=== PATIENT | male | born 1975 | race African-American/Black ===

== ENCOUNTER → 2017-07-06 | Outpatient (REF) ==
--- NOTE | 2017-07-06 09:23 | REP ---
STANDING AP BILATERAL KNEES: Standing AP views of bilateral knees performed. No fracture, dislocation or intrinsic bone disease is seen. Joint spaces are normal. IMPRESSION: Negative exam. Signed by Saw Jackman MD 07/06/2017 09:42 A
--- NOTE | 2017-07-06 09:24 | REP ---
RIGHT KNEE, TWO VIEWS: Lateral and sunrise views of the right knee are performed and correlated with today's AP standing view. There is no fracture, dislocation or intrinsic bone disease. The joint spaces appear normal. There is no joint effusion. IMPRESSION: Negative right knee series. Signed by Saw Jackman MD 07/06/2017 09:42 A
== END ==
LOC: M RAD 08:29
PROVIDERS: ATTEND Internal Medicine
DX: M25.561 Pain in right knee (principal)

== ENCOUNTER 2017-09-28 04:20 | Emergency (ER) | payer OTHER ==
[~2017-09-28] VITALS: Ht 188 cm; Wt 90.0 kg
[2017-09-28] MEDS ORDERED: KETOROLAC 30 MG/ML VIAL (J1885) IV ONE ×2 (05:15→08:15)
[2017-09-28] MEDS ORDERED: NS 1,000 ML IV ONE (05:15)
[2017-09-28 05:44] LABS: BASO % 0.4 % (0.0-1.0); EOS % 0.6 % (0.0-3.0); IMMATURE GRANULOCYTE % 0.4 % (0-0); LYMPH # 1.7 10^3/uL (1.5-4.5); LYMPH % 25.6 % (24.0-44.0); MEAN CORPUSCULAR HEMOGLOBIN 33.5 pg (27.0-33.0); MEAN CORPUSCULAR HGB CONC 34.1 g/dl (32.0-36.5); MEAN CORPUSCULAR VOLUME 98.2 fl (80.0-96.0); MONO # 0.6 10^3/uL (0.0-0.8); MONO % 8.8 % (0.0-5.0); NEUTROPHILS # 4.3 10^3/uL (1.8-7.7); NEUTROPHILS % 64.2 % (36.0-66.0); PLATELET COUNT, AUTOMATED 241 10^3/uL (150-450); RED CELL DISTRIBUTION WIDTH 11.5 % (11.5-14.5); WHITE BLOOD COUNT 6.7 10^3/uL (4.0-10.0)
--- NOTE | 2017-09-28 07:00 | REPUSA ---
CLINICAL HISTORY: Abdominal pain. TECHNIQUE: Multiple axial, sagittal and coronal CT images were obtained through the abdomen and pelvi s without administration of oral or IV contrast material. COMMENTS: The liver is of uniform attenuation without mass or defect. There is no intra or extrahepatic biliary ductal dilatation. The spleen is normal. The gallbladder is within normal limits. The pancreas is of normal contour and attenuation characteristics. There is no evidence of adrenal mass. 3.8x2.7 cm right renal simple cyst. Bilateral renal stones with the largest measuring 5 mm. 4.7 mm obstructing stone of the junction between the mid and distal thirds of the left ureter. Mild l eft hydroureteronephrosis. Intervertebral disc spacer is noted at L5-S1 in good position. There is no evidence for appendicitis. There is no bowel wall thickening. No evidence for small or la rge bowel obstruction. There is no evidence of abdominal ascites or lymphadenopathy. There is no evidence of intrinsic or extrinsic bladder mass. There is no pelvic ascites or lymphadeno byron. Images of the lung bases show no evidence of pleural or parenchymal mass. There are no pleural effusi ons. The bony structures are free of lytic or blastic lesions. Multilevel degenerative changes are seen in volving the thoracolumbar spine. Fat containing hernia without incarceration. IMPRESSION: Bilateral nephrolithiasis. Obstructing stone of the distal left ureter. Mild left hydroureteronephrosis. Thank you for your kind referral of this patient.
[2017-09-28 07:05] LABS: ALBUMIN 3.7 GM/DL (3.2-5.2); ALBUMIN/GLOBULIN RATIO 1.06 (1.00-1.93); ALKALINE PHOSPHATASE 56 U/L (45-117); ALT/SGPT 30 U/L (12-78); ANION GAP 6 MEQ/L (8-16); AST/SGOT 16 U/L (7-37); BILIRUBIN,DIRECT 0.3 MG/DL (0.0-0.2); BILIRUBIN,TOTAL 1.7 MG/DL (0.2-1.0); BLOOD UREA NITROGEN 11 MG/DL (7-18); CALCIUM LEVEL 8.6 MG/DL (8.5-10.1); CARBON DIOXIDE LEVEL 29 MEQ/L (21-32); CHLORIDE LEVEL 106 MEQ/L (98-107); CREATININE FOR GFR 1.06 MG/DL (0.70-1.30); GLOMERULAR FILTRATION RATE > 60.0 (>60); GLUCOSE, FASTING 99 MG/DL (70-105); POTASSIUM SERUM 4.2 MEQ/L (3.5-5.1); SODIUM LEVEL 141 MEQ/L (136-145); TOTAL PROTEIN 7.2 GM/DL (6.4-8.2)
[2017-09-28 07:42] VITALS: O2SAT 96
[2017-09-28] MEDS ORDERED: PERCOCET 5MG/325MG TAB PO ONE (08:15)
[2017-09-28] MEDS ORDERED: PERC5TAB12 PO (08:52)
[2017-09-28] MEDS ORDERED: FLOM5CAP PO (08:52)
[2017-09-28 09:05] VITALS: BP 132/83
== END 2017-09-28 09:07 | disposition home or self-care (01) ==
LOC: M ED 04:20
DX: N20.1 Calculus of ureter (principal); F43.10 Post-traumatic stress disorder, unspecified; Z87.442 Personal history of urinary calculi
CPT/HCPCS: 36415; 74176; 80048; 80076; 81001; 83690; 85025; 96374; 99284; J1885

== ENCOUNTER → 2019-11-03 | Outpatient (CLI) | payer OTHER ==
[~2019-11-03] MED LIST: FLOM0.4C39 PO; PERC5TAB12 PO
--- NOTE | 2019-11-03 15:22 | REP ---
MRI RIGHT HIP WITHOUT CONTRAST: HISTORY: Disorder of ligament right hip. The patient reports injury in a fall with pain in the right hip. Comparison radiographs. October 25, 2019. TECHNIQUE: Coronal T1- and T2-weighted wide field of view bilateral images are acquired. In addition, T2-weighted smaller field of view higher resolution fat sat images are obtained of the right hip in all three planes. MRI FINDINGS: Cortical and medullary bone signal intensity are normal on T1- and T2-weighted scans in the proximal femurs. There is no evidence of occult fracture or avascular necrosis. Bone signal intensity is normal in the visualized bony pelvic ring as well. No significant hip joint effusion is seen. No periarticular bursal fluid collection or hematoma is appreciated. Urinary bladder, prostate, and seminal vesicles are unremarkable. There is no evidence of acetabular labral disruption. No loose body is seen. Ligamentum teres is intact. There is no abnormality at the common hamstring tendon insertion on the ischium or on other tendon insertions on the greater trochanter or lesser trochanter. There is a tiny subcortical cyst in the superior acetabulum, and there is minimal chondromalacia pattern in the hip articulation. This appears to be bilateral. IMPRESSION: Subtle findings may reflect chondromalacia. There is a tiny subcortical cyst in the acetabulum on the right. Otherwise normal MRI study of the right hip. Electronically Signed by Maldonado Farah MD 11/03/2019 03:50 P
== END ==
LOC: M RAD 13:14
PROVIDERS: ATTEND Family Medicine
DX: M24.251 Disorder of ligament, right hip (principal)

== ENCOUNTER → 2020-02-04 | Outpatient (CLI) | payer OTHER ==
--- NOTE | 2020-02-06 03:04 | ECWPNPC ---
PATIENT NAME: ARNOLDO WALDEN : 1975 GENDER: MALE VISIT DATE: 02/04/2020 DISCHARGE DATE: 02/04/20 1123 VISIT LOCKED DATE TIME: PHYSICIAN: EVAN ESPINOZA RESOURCE: EVAN ESPINOZA REASON FOR APPOINTMENT 1. REFERENCE #: [id number] HISTORY OF PRESENT ILLNESS PAIN SCREENING: PATIENT HAS A COMPLAINT OF ACUTE OR CHRONIC PAIN :YES 44-YEAR-OLD MALE IN FOR INITIAL PAIN CONSULT. HE RATES HIS PAIN CURRENTLY AT A 6 OUT OF 10 AND DESCRIBES IT ACHING, AND SHARP. 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 PATIENT STATES HIS BACK PAIN HAS BEEN PRESENT FOR 10 YEARS AND DENIES BEING ON MEDICATIONS IN THE PAST THAT HE FOUND HELPFUL IN ALLEVIATING HIS SYMPTOMS. FALL RISK SCREENING: SCREENING :NO FALLS REPORTED IN THE LAST YEAR CURRENT MEDICATIONS TAKING ERGOCALCIFEROL 50 MCG (2000 UT) TABLET 1 TABLET ORALLY ONCE A DAY TAKING ROSUVASTATIN CALCIUM 40 MG TABLET 1 TABLET ORALLY ONCE A DAY TAKING SERTRALINE HCL 100 MG TABLET 1/2 TABLET ORALLY ONCE A DAY NOT-TAKING CYCLOBENZAPRINE HCL 5 MG TABLET 1/2 TAB AT HS NEEDED ORALLY BEFORE BEDTIME NOT-TAKING FLUTICASONE PROPIONATE 50 MCG/ACT SUSPENSION 1 SPRAY IN EACH NOSTRIL NASALLY ONCE A DAY NOT-TAKING MELOXICAM 15 MG TABLET 1 TABLET ORALLY ONCE DAILY NEEDED NOT-TAKING OMEPRAZOLE 20 MG CAPSULE DELAYED RELEASE 1 CAPSULE 30 MINUTES BEFORE MORNING MEAL ORALLY ONCE A DAY NOT-TAKING SODIUM CHLORIDE (INHALANT) 0.65% SOLN NASAL SPRAY 1 SPAY IN EACH NOSTRIL DAILY MEDICATION LIST REVIEWED AND RECONCILED WITH THE PATIENT PAST MEDICAL HISTORY CHRONIC PAIN SYNDROME PTSD FLORENTINO MIGRAINES FACIAL SCARS 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 SURGICAL HISTORY L5-S1 DISC ARTHROPLASTY 2008 KIDNEY STONES FAMILY HISTORY FATHER: MOTHER: ALIVE 1 SISTER(S) - HEALTHY. 3 SON(S) , 3 DAUGHTER(S) - HEALTHY. DAD 2008 FROM LUNG CANCER. SOCIAL HISTORY GENERAL: TOBACCO USE ARE YOU A:NONSMOKER LATEX QUESTIONNAIRE LATEX ALLERGY : HAVE YOU EVER DEVELOPED ANY TYPE OF REACTION AFTER HANDLING LATEX PRODUCTS SUCH RUBBER GLOVES, CONDOMS, DIAPHRAGMS, BALLOONS, SOCKS, OR UNDERWEAR?NO LATEX ALLERGY : HAVE YOU EVER DEVELOPED ANY TYPE OF REACTION DURING OR AFTER DENTAL APPOINTMENT, VAGINAL/RECTAL EXAMINATION, SURGICAL PROCEDURE, OR ANY OTHER EXPOSURE?NO LATEX RISK : HAVE YOU EVER HAD ANY DIFFICULTY BREATHING OR HIVES AFTER EATING OR HANDLING ANY FRUITS, OR VEGETABLES; SUCH KIWI, BANANAS, STONE FRUITS, OR CHESTNUTSNO LATEX RISK : DO YOU HAVE A PREVIOUS PERSONAL HISTORY OF MORE THAN NINE SURGERIES, SPINA BIFIDA, OR REPEATED CATHERIZATIONS? NO LATEX RISK : ARE YOU FREQUENTLY EXPOSED TO LATEX PRODUCTS IN YOUR OCCUPATION?NO DATE ASKED : 02/04/2020 ALCOHOL SCREENING DID YOU HAVE A DRINK CONTAINING ALCOHOL IN THE PAST YEAR?NO POINTS0 INTERPRETATIONNEGATIVE RECREATIONAL DRUG USE DRUG USE?NO NO RECREATIONAL DRUG USE CAFFEINE CAFFEINE USE?NO YARSANI YARSANI NON PENTECOSTALISM LANGUAGE LANGUAGES SPOKEN:ITALIAN LEARNING BARRIERS / SPECIAL NEEDS CHANGE FROM LAST VISIT? 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 DIET: REGULAR. EXERCISE: WALKS. OTHERS AT HOME: SPOUSE, CHILDREN. NEW PATIENT PAIN DIARY TODAY'S VISIT 02/04/20 PATIENT DESCRIBES PAIN :ACHING, IT COMES AND GOES, SHARP FROM 0-10, WHAT LEVEL IS YOUR PAIN TODAY?2 PRECIPITATING FACTORS PROLONGED STANDING OR SITTING, LIFTING TOO MUCH, WALKING OR RUNNING DISTANCES ALLEVIATING FACTORS REALLY NOTHING, SOMETIMES HELPED WITH REST IMPACT ON FUNCTION PREVENTS HIM FROM DOING SOME THINGS HE ENJOYS DOING PAIN CLINIC PFS, CLERGY, PUBLIC HEALTH REFERRALS HAS THE PATIENT BEEN EDUCATED REGARDING HIS/HER PLAN OF CARE?YES HAS THE PATIENT BEEN EDUCATED REGARDING PAIN, THE RISK FOR PAIN, THE IMPORTANCE OF EFFECTIVE PAIN MANAGEMENT, AND THE PAIN ASSESSMENT PROCESS?YES ADVANCE DIRECTIVE ADVANCE DIRECTIVE DISCUSSED WITH PATIENT: PT HAS NO ADVANCED DIRECTIVES, DECLINES INFORMATION OR ASSISTANCE AT THIS TIME HOSPITALIZATION/MAJOR DIAGNOSTIC PROCEDURE BACK SURGERY IN [place] 2010 KIDNEY STONES REVIEW OF SYSTEMS REVIEWED BY: PROVIDER: DI SHAIKH . CONSTITUTIONAL: ANY CHANGE IN YOUR MEDICAL CONDITION? NO . CHILLS NO . FEVER NO . INFECTION: DO YOU HAVE NEW INFECTIONS? NO . DO YOU HAVE HISTORY OF MRSA? NO . MUSCULOSKELETAL: ANY NEW PATTERNS OF PAIN OR NUMBNESS? NO . SYTEMIC LUPUS NO . GASTROENTEROLOGY: ANY NEW CHANGE IN BOWEL CONTROL? NO . BARRETTS ESOPHAGUS NO . CIRRHOSIS NO . HEPATITIS NO . LIVER FAILURE NO . ACID REFLUX NO . UNEXPLAINED WEIGHT LOSS NO . GENITOURINARY: ANY NEW CHANGE IN BLADDER CONTROL? NO . IS THERE A CHANCE YOU COULD BE ? NO . HEMATOLOGY/LYMPH: DO YOU TAKE ANY BLOOD THINNERS? (FOR EXAMPLE- COUMADIN, PLAVIX, AGGRENOX, PLATEL, PRADAXA, OR XARELTO) NO . WHEN WAS YOUR LAST DOSE? DATE: TIME: . LOW PLATELET COUNT NO . SICKLE CELL DISEASE NO . VON WILLIEBRANDS NO . FACTOR V LEIDEN NO . THALLASEMIA NO . ANEMIA NO . EASY BRUISING NO . NEUROLOGY: HAVE YOU FALLEN IN THE PAST 12 MONTHS? YES PT REPORTS HE FELL ABOUT A MONTH AGO, A LADDER HE WAS ON BROKE, HE FELL BACKWARDS STRIKING HIS LEFT SIDE. WENT TO THE ED AT [facility], HAD SOME XRAYS DONE, PER PT HE FRACTURED SOME RIBS ON HIS LEFT SIDE, HE WAS GIVEN SOME MEDICATIONS, IBUPROFEN. . ANY NEW EXTREMITY NUMBNESS OR WEAKNESS? NO . HEAD INJURY NO . DEMENTIA NO . CEREBRAL PALSY NO . MULTIPLE SCLEROSIS NO . DIZZINESS NO . HEADACHE PT REPORTS HE HAS HAD MIGRAINES FOR YEARS, HAS ABOUT 2 X/WEEK, TAKES EXCEDRIN MIGRAINE . STROKES NO . VERTIGO NO . CARDIOLOGY: DO YOU HAVE A PACEMAKER OR DEFIBRILLATOR? NO . ANGINA NO . HEART ATTACK NO . HEART SURGERY NO . CONGESTIVE HEART FAILURE/FLUID OVERLOAD NO . CHEST PAIN NO . HIGH BLOOD PRESSURE NO . IRREGULAR HEART BEAT NO . RESPIRATORY: HAVE YOU BEEN SICK IN THE PAST WEEK? NO . FEVER NO . FLU LIKE SYMPTOMS? NO . CPAP SOMETIMES USES . BYPAP NO . ASTHMA NO . EMPHYSEMA NO . CHRONIC LUNG DISEASES NO . SHORTNESS OF BREATH ON EXERTION NO . COUGH NO . SNORING NO . INTEGUMENTARY: DO YOU HAVE ANY RASHES OR OPEN SORES? NO . ALLERGIC/IMMUNO: ARE YOU ALLERGIC TO IV DYE? NO . ANY NEW ALLERGIES? NO . PSYCHIATRIC: DO YOU HAVE THOUGHTS OF HURTING YOURSELF OR SOMEONE ELSE? NO . ARE YOU ABUSED, NEGLECTED, OR IN AN UNSAFE ENVIRONMENT? NO . ENDOCRINOLOGY: ARE YOU DIABETIC? NO . THYROID DISORDER NO . OTHER: DO YOU NEED ANY PRESCRIPTIONS? NO . IF YES, PLEASE LIST: ____ . ANY NEW PROBLEMS WITH YOUR MEDICATIONS? NO . WHEN DID YOU LAST EAT? ____ . WHEN DID YOU LAST DRINK? ____ . WHAT DID YOU LAST DRINK? ____ . NAME OF PERSON DRIVING YOU HOME? ____ . DO YOU HAVE ANY OTHER QUESTIONS OR CONCERNS NO . VITAL SIGNS WT 196.00 LBS, HT 74 IN, BMI 25.16 INDEX, BP 125/77 MM HG, HR 63 /MIN, RR 16 /MIN, TEMP 98.5 F, OXYGEN SAT % 97. EXAMINATION GENERAL EXAMINATION: GENERALNO ACUTE DISTRESS, WELL NOURISHED AND HYDRATED. PSYCHAPPROPRIATE MOOD AND AFFECT . LUNGS:CLEAR TO AUSCULTATION BILATERALLY, NO WHEEZES, RHONCHI, RALES. HEART:NO MURMURS, REGULAR RATE AND RHYTHM. BACK:DENIES POINT TENDERNESS ALONG LUMBAR SPINE, SURROUNDING SKIN SHOWS NO ERYTHEMA, ECCHYMOSIS, INCREASED WARMTH, AND/OR SKIN ERUPTIONS NOTED. NEGATIVE SLR BILATERALLY . EXTREMITIES:EQUAL STRENGTH OF THE LOWER EXTREMITIES BILATERALLY . ASSESSMENTS CHRONIC BILATERAL LOW BACK PAIN - M54.5 (PRIMARY) TREATMENT CHRONIC BILATERAL LOW BACK PAIN START BUTRANS PATCH WEEKLY, 5 MCG/HR, 1 PATCH TO SKIN, TRANSDERMAL, WEEKLY, 30 DAYS, 4 NOTES: INFORMATIONAL HANDOUT FOR BUTRANS PRINTED AND REVIEWED WITH PATIENT. HARRISON. CLINICAL NOTES: 44-YEAR-OLD MALE IN FOR INITIAL PAIN CONSULT. GIVEN PRESENTING SYMPTOMS AND RESULTS OF PHYSICAL EXAMINATION RECOMMEND BUTRANS PATCH WITH FOLLOW-UP IN ONE MONTH TO DETERMINE EFFICACY OF TREATMENT. PATIENT HAS EXPRESSED UNDERSTANDING OF AND WAS IN AGREEMENT WITH TREATMENT PLAN. GIVEN TIME TO ASK QUESTIONS AND EXPRESS CONCERNS. PROCEDURE CODES FA211 ESTABILISHED PATIENT [facility] CHARGE DISPOSITION & COMMUNICATION FOLLOW UP 4 WEEKS (REASON: BACK PAIN, NEW MEDICATION) ELECTRONICALLY SIGNED BY CARMELO RIVERA ON 02/05/2020 AT 08:31 AM EDT DISCLAIMER : THIS IS A VISIT SUMMARY EXTRACTED FROM THE [employer] CHART. IT IS NOT A COPY OF THE [employer] PROGRESS NOTE. JOSE CARLOS
== END ==
LOC: M PAIN 10:00
PROVIDERS: ATTEND Family Medicine
DX: M54.5 Low back pain (principal); Z86.59 Personal history of other mental and behavioral disorders; G47.33 Obstructive sleep apnea (adult) (pediatric); G43.909 Migraine, unspecified, not intractable, without status migrainosus; Z79.899 Other long term (current) drug therapy

== ENCOUNTER → 2020-03-04 | Outpatient (CLI) | payer OTHER ==
--- NOTE | 2020-03-06 01:28 | ECWPNPC ---
PATIENT NAME: ARNOLDO WALDEN : 1975 GENDER: MALE VISIT DATE: 03/04/2020 DISCHARGE DATE: 03/04/20 1120 VISIT LOCKED DATE TIME: PHYSICIAN: EVAN ESPINOZA RESOURCE: EVAN ESPINOZA REASON FOR APPOINTMENT 1. BACK PAIN, NEW MEDICATION HISTORY OF PRESENT ILLNESS PAIN SCREENING: PATIENT HAS A COMPLAINT OF ACUTE OR CHRONIC PAIN :YES 44-YEAR-OLD MALE IN FOR CHRONIC PAIN FOLLOW-UP. AT LAST CLINIC VISIT PATIENT WAS STARTED ON TRAMADOL AND HE ADMITS TODAY THAT THIS HAS BEEN HELPFUL BUT DOESN'T COVER HIM THROUGHOUT THE DAY. HE RATES HIS PAIN CURRENTLY AT A 2 OUT OF 10 AND DESCRIBES IT ACHING. HISTORY OF PRESENT ILLNESS: PAIN THE PATIENT DESCRIBES THE PAIN... FALL RISK SCREENING: SCREENING :ONE FALL WITHOUT INJURY IN THE PAST YEAR CURRENT MEDICATIONS UNKNOWN CYCLOBENZAPRINE HCL 5 MG TABLET 1/2 TAB AT HS NEEDED ORALLY BEFORE BEDTIME UNKNOWN MELOXICAM 15 MG TABLET 1 TABLET ORALLY ONCE DAILY NEEDED UNKNOWN OMEPRAZOLE 20 MG CAPSULE DELAYED RELEASE 1 CAPSULE 30 MINUTES BEFORE MORNING MEAL ORALLY ONCE A DAY UNKNOWN SODIUM CHLORIDE (INHALANT) 0.65% SOLN NASAL SPRAY 1 SPAY IN EACH NOSTRIL DAILY UNKNOWN ERGOCALCIFEROL 50 MCG (1999 UT) TABLET 1 TABLET ORALLY ONCE A DAY UNKNOWN ROSUVASTATIN CALCIUM 40 MG TABLET 1 TABLET ORALLY ONCE A DAY UNKNOWN SERTRALINE HCL 100 MG TABLET 1/2 TABLET ORALLY ONCE A DAY UNKNOWN TRAMADOL HCL 50 MG TABLET 1 TABLET NEEDED FOR PAIN ORALLY ONCE A DAY UNKNOWN FLUTICASONE PROPIONATE 50 MCG/ACT SUSPENSION 1 SPRAY IN EACH NOSTRIL NASALLY NEEDED PAST MEDICAL HISTORY CHRONIC PAIN SYNDROME PTSD FLORENTINO MIGRAINES FACIAL SCARS 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 3 SON(S) , 3 DAUGHTER(S) - HEALTHY. DAD 2008 FROM LUNG CANCER. SOCIAL HISTORY GENERAL: TOBACCO USE ARE YOU A:NONSMOKER LATEX QUESTIONNAIRE LATEX ALLERGY : HAVE YOU EVER DEVELOPED ANY TYPE OF REACTION AFTER HANDLING LATEX PRODUCTS SUCH RUBBER GLOVES, CONDOMS, DIAPHRAGMS, BALLOONS, SOCKS, OR UNDERWEAR?NO LATEX ALLERGY : HAVE YOU EVER DEVELOPED ANY TYPE OF REACTION DURING OR AFTER DENTAL APPOINTMENT, VAGINAL/RECTAL EXAMINATION, SURGICAL PROCEDURE, OR ANY OTHER EXPOSURE?NO LATEX RISK : HAVE YOU EVER HAD ANY DIFFICULTY BREATHING OR HIVES AFTER EATING OR HANDLING ANY FRUITS, OR VEGETABLES; SUCH KIWI, BANANAS, STONE FRUITS, OR CHESTNUTSNO LATEX RISK : DO YOU HAVE A PREVIOUS PERSONAL HISTORY OF MORE THAN NINE SURGERIES, SPINA BIFIDA, OR REPEATED CATHERIZATIONS? NO LATEX RISK : ARE YOU FREQUENTLY EXPOSED TO LATEX PRODUCTS IN YOUR OCCUPATION?NO DATE ASKED : 02/04/2020 ALCOHOL SCREENING DID YOU HAVE A DRINK CONTAINING ALCOHOL IN THE PAST YEAR?NO POINTS0 INTERPRETATIONNEGATIVE RECREATIONAL DRUG USE DRUG USE?NO NO RECREATIONAL DRUG USE CAFFEINE CAFFEINE USE?NO CONGREGATIONAL CONGREGATIONAL NON JUDAISM LANGUAGE LANGUAGES SPOKEN:IRISH LEARNING BARRIERS / SPECIAL NEEDS CHANGE FROM LAST VISIT? 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 DIET: REGULAR. EXERCISE: WALKS. OTHERS AT HOME: SPOUSE, CHILDREN. NEW PATIENT PAIN DIARY TODAY'S VISIT 02/04/20 PATIENT DESCRIBES PAIN :ACHING, IT COMES AND GOES, SHARP FROM 0-10, WHAT LEVEL IS YOUR PAIN TODAY?2 PRECIPITATING FACTORS PROLONGED STANDING OR SITTING, LIFTING TOO MUCH, WALKING OR RUNNING DISTANCES ALLEVIATING FACTORS REALLY NOTHING, SOMETIMES HELPED WITH REST IMPACT ON FUNCTION PREVENTS HIM FROM DOING SOME THINGS HE ENJOYS DOING PAIN CLINIC PFS, CLERGY, PUBLIC HEALTH REFERRALS HAS THE PATIENT BEEN EDUCATED REGARDING HIS/HER PLAN OF CARE?YES HAS THE PATIENT BEEN EDUCATED REGARDING PAIN, THE RISK FOR PAIN, THE IMPORTANCE OF EFFECTIVE PAIN MANAGEMENT, AND THE PAIN ASSESSMENT PROCESS?YES ADVANCE DIRECTIVE ADVANCE DIRECTIVE DISCUSSED WITH PATIENT:NO PT HAS NO ADVANCED DIRECTIVES, DECLINES INFORMATION OR ASSISTANCE AT THIS TIME HOSPITALIZATION/MAJOR DIAGNOSTIC PROCEDURE BACK SURGERY IN [place] 2010 KIDNEY STONES REVIEW OF SYSTEMS REVIEWED BY: PROVIDER: DI SHAIKH . CONSTITUTIONAL: ANY CHANGE IN YOUR MEDICAL CONDITION? NO . CHILLS NO . FEVER NO . INFECTION: DO YOU HAVE NEW INFECTIONS? NO . DO YOU HAVE HISTORY OF MRSA? NO . MUSCULOSKELETAL: ANY NEW PATTERNS OF PAIN OR NUMBNESS? NO . GASTROENTEROLOGY: ANY NEW CHANGE IN BOWEL CONTROL? NO . GENITOURINARY: ANY NEW CHANGE IN BLADDER CONTROL? NO . IS THERE A CHANCE YOU COULD BE ? NO . HEMATOLOGY/LYMPH: DO YOU TAKE ANY BLOOD THINNERS? (FOR EXAMPLE- COUMADIN, PLAVIX, AGGRENOX, PLATEL, PRADAXA, OR XARELTO) NO . WHEN WAS YOUR LAST DOSE? DATE: TIME: . NEUROLOGY: HAVE YOU FALLEN IN THE PAST 12 MONTHS? YES . ANY NEW EXTREMITY NUMBNESS OR WEAKNESS? NO . CARDIOLOGY: DO YOU HAVE A PACEMAKER OR DEFIBRILLATOR? NO . RESPIRATORY: HAVE YOU BEEN SICK IN THE PAST WEEK? NO . FEVER NO . FLU LIKE SYMPTOMS? NO . COUGH NO . INTEGUMENTARY: DO YOU HAVE ANY RASHES OR OPEN SORES? NO . ALLERGIC/IMMUNO: ARE YOU ALLERGIC TO IV DYE? NO . ANY NEW ALLERGIES? NO . PSYCHIATRIC: DO YOU HAVE THOUGHTS OF HURTING YOURSELF OR SOMEONE ELSE? NO . ARE YOU ABUSED, NEGLECTED, OR IN AN UNSAFE ENVIRONMENT? NO . ENDOCRINOLOGY: ARE YOU DIABETIC? NO . OTHER: DO YOU NEED ANY PRESCRIPTIONS? NO . IF YES, PLEASE LIST: ____ . ANY NEW PROBLEMS WITH YOUR MEDICATIONS? NO . WHEN DID YOU LAST EAT? ____ . WHEN DID YOU LAST DRINK? ____ . WHAT DID YOU LAST DRINK? ____ . NAME OF PERSON DRIVING YOU HOME? ____ . DO YOU HAVE ANY OTHER QUESTIONS OR CONCERNS NO . VITAL SIGNS WT 194.8 LBS, HT 74 IN, BMI 25.01 INDEX, BP 124/77 MM HG, HR 73 /MIN, RR 18 /MIN, TEMP 97.2 F, OXYGEN SAT % 100%, NA INITIALS AW 1020. EXAMINATION GENERAL EXAMINATION: GENERALNO ACUTE DISTRESS, WELL NOURISHED AND HYDRATED. PSYCHAPPROPRIATE MOOD AND AFFECT . LUNGS:CLEAR TO AUSCULTATION BILATERALLY, NO WHEEZES, RHONCHI, RALES. HEART:NO MURMURS, REGULAR RATE AND RHYTHM. ASSESSMENTS CHRONIC BILATERAL LOW BACK PAIN - M54.5 (PRIMARY) TREATMENT CHRONIC BILATERAL LOW BACK PAIN INCREASE TRAMADOL HCL TABLET, 50 MG, 1 TABLET NEEDED FOR PAIN, ORALLY, TWICE DAILY NEEDED, 30 DAYS, 60 CLINICAL NOTES: 44-YEAR-OLD MALE IN FOR CHRONIC PAIN FOLLOW-UP. GIVEN PRESENTING SYMPTOMS RECOMMENDED INCREASING TRAMADOL TO TWICE A DAY DOSING WITH FOLLOW-UP IN 2 MONTHS TO DETERMINE EFFICACY OF TREATMENT. PATIENT HAS EXPRESSED UNDERSTANDING OF AND WAS IN AGREEMENT WITH TREATMENT PLAN. GIVEN TIME TO ASK QUESTIONS AND EXPRESS CONCERNS. , [employer] REGISTRY REVIEWED AND DEMONSTRATES COMPLLIANCE. (REF # [id number] ) BRINGS IN MEDICATIONS WHICH IS APPROPRIATE FOR WHAT WAS DISPENSED. RECENT URINE TOXICOLOGY REVIEWED. NO UNAUTHORIZED MEDICATIONS. NO ILLICIT SUBSTANCES AND PRESCRIBED MEDICATIONS WERE PRESENT. PROCEDURE CODES FA211 ESTABILISHED PATIENT [facility] CHARGE DISPOSITION & COMMUNICATION FOLLOW UP 2 MONTHS (REASON: MED INCREASE BACK PAIN ) ELECTRONICALLY SIGNED BY CARMELO RIVERA ON 03/05/2020 AT 08:03 AM EDT DISCLAIMER : THIS IS A VISIT SUMMARY EXTRACTED FROM THE [employer] CHART. IT IS NOT A COPY OF THE [employer] PROGRESS NOTE. JOSE CARLOS
== END ==
LOC: M PAIN 10:15
PROVIDERS: ATTEND Family Medicine
DX: M54.5 Low back pain (principal); Z79.891 Long term (current) use of opiate analgesic; Z79.899 Other long term (current) drug therapy